=== PATIENT | male | born 1990 | race African-American/Black ===

== ENCOUNTER → 2017-04-01 | Outpatient (CLI) | payer OTHER ==
[2016-08-02 15:43] VITALS: BP 148/84
[~2017-04-01] MED LIST: AMOX1TAB61 PO
--- NOTE | 2017-04-01 15:17 | RAD ---
Lumbar spine radiographs 04/01/2017 Indication: Lumbar pain with standing and bending over Comparison: None available Technique: 3 views of the lumbar spine are provided. Findings: There are 5 non rib-bearing lumbar type vertebral bodies. There is retrolisthesis of L5 on S1. L5 pars defect is suspected. There is no significant disc space narrowing. No significant soft tissue abnormality identified. Impression: Minimal retrolisthesis of L5 on S1 with suspected bilateral L5 pars defect.
== END | disposition home or self-care (01) ==
LOC: RAD 09:32
PROVIDERS: ATTEND Surgery
DX: M54.5 Low back pain (principal)
CPT/HCPCS: 72100

== ENCOUNTER 2017-04-03 13:17 | Emergency (ER) | payer OTHER ==
[~2017-04-03] VITALS: Ht 165.1 cm; Wt 98.0 kg
[2017-04-03 13:35] VITALS: BP 141/83
[2017-04-03] MEDS ORDERED: AMOX1TAB61 PO (14:02)
--- NOTE | 2017-04-03 14:02 | PHYS DOC ---
Past Medical History Past Medical History: Bronchitis Past Surgical History: No Surgical History Alcohol Use: Occasionally Drug Use: None Adult General Chief Complaint Chief Complaint: SORE THROAT HPI HPI Patient is a 26 year old male presents to the emergency department stating that he's had a 2 day history of a sore throat. He thinks he had a fever last night heart rate did not take his temperature. He states that he had taken ibuprofen for the fever. He denies any nausea vomiting. He denies any shortness of air difficulty breathing. He is able to maintain his own saliva. Patient does talk with a muffled voice however no hot potato voice noted. Review of Systems Review of Systems Constitutional: Denies fever or chills [] Eyes: Denies change in visual acuity, redness, or eye pain [] HENT: Denies nasal congestion complaint of sore throat [] Respiratory: Denies cough or shortness of breath [] Cardiovascular: No additional information not addressed in HPI [] GI: Denies abdominal pain, nausea, vomiting, bloody stools or diarrhea [] : Denies dysuria or hematuria [] Musculoskeletal: Denies back pain or joint pain [] Integument: Denies rash or skin lesions [] Neurologic: Denies headache, focal weakness or sensory changes [] Endocrine: Denies polyuria or polydipsia [] Allergies Allergies Allergies Coded Allergies Type Severity Reaction Last Updated Verified No Known Drug Allergies 03/06/14 No Physical Exam Physical Exam Constitutional: Well developed, well nourished, no acute distress, non-toxic appearance. [] HENT: Normocephalic, atraumatic, bilateral external ears normal, oropharynx moist, no oral exudates, nose normal. Bilateral tympanic membranes appear to be normal. Throat with erythematous and redness noted no exudate noted no uvula deviation noted. Eyes: PERRLA, EOMI, conjunctiva normal, no discharge. [] Neck: Normal range of motion, no tenderness, supple, no stridor. [] Cardiovascular:Heart rate regular rhythm, no murmur [] Lungs & Thorax: Bilateral breath sounds clear to auscultation [] Skin: Warm, dry, no erythema, no rash. [] Back: No tenderness Extremities: No tenderness, no cyanosis, no clubbing, ROM intact, no edema. [] Neurologic: Alert and oriented X 3, normal motor function, normal sensory function, no focal deficits noted. [] Psychologic: Affect normal, judgement normal, mood normal. [] Current Patient Data Vital Signs Vital Signs Date Time Temp Pulse Resp B/P (MAP) Pulse Ox O2 Delivery O2 Flow Rate FiO2 04/03/17 13:35 98.9 90 18 100 Room Air 98.9 EKG EKG [] Radiology/Procedures Radiology/Procedures [] Course & Med Decision Making Course & Med Decision Making Pertinent Labs and Imaging studies reviewed. (See chart for details) Rapid strep was positive. Patient was offered [place] injection in which patient refused. He'll be placed on Augmentin for the next 10 days. Recommendations to follow-up the primary care physician as needed in the next week. Signs and symptoms to return back to emergency department as been provided. Patient agrees with discharge instructions treatment regimens and follow-up recommendations. Patient was provided with signs and symptoms to return back to the emergency department. All questions and concerns was answered at patient's bedside. Dragon Disclaimer Dragon Disclaimer This electronic medical record was generated, in whole or in part, using a voice recognition dictation system. Departure Departure Impression: Primary Impression: Strep throat Disposition: HOME, SELF-CARE Condition: STABLE Referrals: NO PCP (PCP) Patient Instructions: Strep Throat, [id number] Additional Instructions: Your rapid strep for your throat was positive for strep throat. Antibiotics for the next 10 days do not stop taking the medication even if you start feeling better. Tylenol or ibuprofen for fever chills or generalized body aches and discomfort. Drink plenty of fluids. Follow-up primary care physician in the next week. Return back to emergency prior signs symptoms of become worse Scripts Amoxicillin/Potassium Clav (AUGMENTIN 875-125 TABLET) 1 Each Tablet 1 TAB PO BID, #20 TAB Prov: SALOME GEE APRN 04/03/17 SALOME GEE APRN Apr 03, 2017 14:02
[2017-04-04 07:47] LABS: NEGATIVE OBC STREP NEG; POSITIVE OBC STREP POS
== END 2017-04-03 14:00 | disposition home or self-care (01) ==
LOC: ER 13:17
DX: J02.0 Streptococcal pharyngitis (principal)
CPT/HCPCS: 87880; 99283

== ENCOUNTER 2018-01-03 10:51 | Emergency (ER) | payer SELFPAY, OTHER | END 2018-01-03 11:47 | disposition home or self-care (01) | LOC: ER 10:51 | DX: B00.1 Herpesviral vesicular dermatitis (principal) | CPT/HCPCS: 99281 ==

== ENCOUNTER 2018-05-18 14:08 | Emergency (ER) | payer OTHER ==
[~2018-05-18] VITALS: Ht 165.1 cm; Wt 90.7 kg
[~2018-05-18 14:08] MED LIST changes: +NAPR-683 PO
--- NOTE | 2018-05-18 14:38 | PHYS DOC ---
Past Medical History Past Medical History: No Pertinent History Past Surgical History: No Surgical History Additional Information: SMOKES BLACK & MILDS Alcohol Use: Occasionally Drug Use: None Adult General Chief Complaint Chief Complaint: FEVER HPI HPI Patient is a 27 year old male who presents with a sore throat that has been worsening over the past several days. The patient is now febrile at home. He states that he knows that he needs his tonsils removed. He is able to handle his own secretions. He has not taken ibuprofen or Tylenol at home for pain. Review of Systems Review of Systems Constitutional: See history of present illness Eyes: Denies change in visual acuity, redness, or eye pain [] HENT: See history of present illness Respiratory: Denies cough or shortness of breath [] Cardiovascular: No additional information not addressed in HPI [] Neurologic: Denies headache, focal weakness or sensory changes [] Endocrine: Denies polyuria or polydipsia [] All other systems were reviewed and found to be within normal limits, except as documented in this note. Current Medications Current Medications Current Medications Medications (Trade) Dose Ordered Sig/Juan Ramon Start Time Stop Time Status Last Admin Dose Admin Ibuprofen (Motrin) 400 mg 1X ONCE 05/18/18 14:45 05/18/18 14:46 DC 05/18/18 14:50 400 MG Allergies Allergies Allergies Coded Allergies Type Severity Reaction Last Updated Verified No Known Drug Allergies 03/06/14 No Physical Exam Physical Exam Constitutional: Well developed, well nourished, no acute distress, non-toxic appearance. [] HENT: Normocephalic, atraumatic, bilateral external ears normal, pharyngeal erythema with enlarged tonsils, no exudate noted, muffled voice Eyes: PERRLA, EOMI, conjunctiva normal, no discharge. [] Neck: Normal range of motion, positive anterior cervical adenopathy, supple, no stridor. [] Cardiovascular:Heart rate regular rhythm, no murmur [] Lungs & Thorax: Bilateral breath sounds clear to auscultation [] Abdomen: Bowel sounds normal, soft, no tenderness, no masses, no pulsatile masses. [] Skin: Warm, dry, no erythema, no rash. [] Back: No tenderness, no CVA tenderness. [] Extremities: No tenderness, no cyanosis, no clubbing, ROM intact, no edema. [] Neurologic: Alert and oriented X 3, normal motor function, normal sensory function, no focal deficits noted. [] Psychologic: Affect normal, judgement normal, mood normal. [] Current Patient Data Vital Signs Vital Signs Date Time Temp Pulse Resp B/P (MAP) Pulse Ox O2 Delivery O2 Flow Rate FiO2 05/18/18 14:25 99.3 105 20 151/84 (106) 96 Room Air 99.3 EKG EKG [] Radiology/Procedures Radiology/Procedures [] Course & Med Decision Making Course & Med Decision Making Pertinent Labs and Imaging studies reviewed. (See chart for details) [] Dragon Disclaimer Dragon Disclaimer This electronic medical record was generated, in whole or in part, using a voice recognition dictation system. Departure Departure Impression: Primary Impression: Tonsillitis Disposition: 01 HOME, SELF-CARE Condition: STABLE Referrals: NO PCP (PCP) Patient Instructions: Tonsillitis Additional Instructions: Take the antibiotic as directed. Follow-up with ear nose and throat for further evaluation of your tonsils. Scripts Cephalexin (KEFLEX) 500 Mg Capsule 1 CAP PO TID, #30 CAP Prov: SONYA REEVES APRN 05/18/18 SONYA REEVES APRN May 18, 2018 14:38
[2018-05-18] MEDS ORDERED: IBUPROFEN 400 MG TABLET. PO ONE (14:45)
[2018-05-18] MEDS ORDERED: CEPH-264 PO (15:18)
[2018-05-18 15:31] VITALS: BP 145/72
== END 2018-05-18 15:20 | disposition home or self-care (01) ==
LOC: ER 14:08
DX: J03.90 Acute tonsillitis, unspecified (principal); F17.200 Nicotine dependence, unspecified, uncomplicated
CPT/HCPCS: 87070; 87880; 99283

== ENCOUNTER 2018-09-18 09:56 | Emergency (ER) | payer OTHER ==
[~2018-09-18 09:56] MED LIST changes: +CEPH-264 PO
== END 2018-09-18 11:22 | disposition left against medical advice (07) ==
LOC: ER 10:26
DX: H57.89 Other specified disorders of eye and adnexa (principal); Z53.21 Procedure and treatment not carried out due to patient leaving prior to being seen by health care provider

== ENCOUNTER → 2018-12-26 | Outpatient (CLI) | payer OTHER ==
--- NOTE | 2018-12-26 11:30 | RAD ---
2 view right knee study Clinical indications: Right knee pain. No known injury. IMPRESSION: No acute fracture or dislocation or lytic process is seen. No significant arthritic change is seen. IMPRESSION: No acute fracture. Electronically signed by: Calvin Hoyt MD (12/26/2018 11:27 AM) [id number]
== END | disposition home or self-care (01) ==
LOC: RAD 09:16
PROVIDERS: ATTEND Surgery
DX: M25.561 Pain in right knee (principal); M54.9 Dorsalgia, unspecified
CPT/HCPCS: 73560

== ENCOUNTER → 2021-03-25 | Outpatient (CLI) | payer OTHER ==
--- NOTE | 2021-03-25 13:01 | RAD ---
EXAM: AP and lateral views cervical spine DATE: 03/25/2021 10:35 AM CLINICAL HISTORY: Reason: NECK PAIN. / Spl. Instructions: / History: COMPARISON: None available. FINDINGS: On the lateral view, the cervical spine is imaged from the skull base to mid C7. Vertebral body heights are preserved. Mild C4-5, C5-6 and C7-T1 disc height loss. Straightening of the normal cervical lordosis. No spondylolisthesis. Normal predental space. No significant prevertebral soft tissue swelling. IMPRESSION: 1. No acute cervical spine fracture or subluxation. 2. Mild degenerative changes mid-lower cervical spine as above. Electronically signed by: Ellis Paulson MD (03/25/2021 12:59 PM) [id number]
== END ==
LOC: RAD 09:50
PROVIDERS: ATTEND Anesthesiology Pain Medicine
DX: M47.812 Spondylosis without myelopathy or radiculopathy, cervical region (principal)
CPT/HCPCS: 72040